=== PATIENT | female | born 1975 | race Caucasian/White ===

== ENCOUNTER 2022-03-21 00:46 | Emergency (ER) | payer MEDICAID ==
[~2022-03-21] VITALS: Ht 162.6 cm; Wt 57.2 kg
--- NOTE | 2022-03-21 01:10 | NUR ---
DR. WALLIS AT BEDSIDE, MSE IN PROGRESS.
--- NOTE | 2022-03-21 01:16 | NUR ---
XRAY AT BEDSIDE.
[2022-03-21] MEDS ORDERED: IBUPROFEN 800 MG TABLET ONE (01:23)
[2022-03-21] MEDS ORDERED: HYDR-4209 PO (01:29)
[2022-03-21] MEDS ORDERED: IBUPROFEN 800 MG TABLET PO ONE (01:30)
[2022-03-21 01:37] VITALS: BP 118/74
--- NOTE | 2022-03-21 01:37 | NUR ---
Patient discharged to home in stable condition. Written and verbal after care instructions given. Patient verbalizes understanding of instructions. Stressed follow up or return to ER for worsening s/s. Steady gait, accompanied by friend.
== END 2022-03-21 01:50 | disposition home or self-care (01) ==
LOC: ER 01:04
DX: S62.102A Fracture of unspecified carpal bone, left wrist, initial encounter for closed fracture (principal); W18.2XXA Fall in (into) shower or empty bathtub, initial encounter; Y93.E1 Activity, personal bathing and showering; Y92.031 Bathroom in apartment as the place of occurrence of the external cause; Y99.8 Other external cause status
CPT/HCPCS: 73110; A4663